=== PATIENT | female | born 1995 | race Two or more races ===

== ENCOUNTER 2025-06-15 11:38 | Outpatient (AMB) | payer MEDICAID, SELFPAY ==
[2025-06-15 11:57] VITALS: BP 133/87; PULSE 102; RESP 20; TEMP 36.6; O2SAT 95; BMI 36.8
--- NOTE | 2025-06-15 11:57 | OBCLNT_ITS ---
Vital Signs 06/15/25 11:57 Height 1.68 m Height Method Stated Weight 103.476 kg Weight Measurement Method Standing Scale BMI 36.8 BP 133/87 H Blood Pressure Source Automatic Cuff Blood Pressure Location Left Upper Arm Position Sitting Respiration 20 Pulse 102 H Pulse Source Monitor Temp 97.8 F Temp Source Oral Pulse Oximetry (%) 95 Oxygen Delivery Method Room Air Allergies/Home Meds Allergies & Medications Allergies aspirin Allergy (Verified 06/15/25 12:01) Medication Reconciliation No Known Home Medications 06/15/25 [History Confirmed 06/15/25] Intake Visit Data Collection New Patient or Established: New Patient (never been to [facility]) Reason for Visit:: INITIAL CARE Seen by Clinical Staff ONLY (RN/MA): No Probate Judge Required: No Do You Feel Safe at Home: Yes Authorities Contacted: N/A PCP or OBGYN visit in last 3 months: No Hx Now: Yes Are you currently on any form of Control: No Last menstrual period: 10/19/24 Pain Present Currently: No Pain Scale Used: Casarez-Ruelas/Numerical Pain scale:: 0 Smoking Status Smoking Status: Former smoker Questionnaires Covid-19 Vaccine Questionnaire Has patient been vacinated for Covid-19 Have you been vacinated for Covid-19: Yes PHQ-9 PHQ-2 Over the last 2 weeks, how often have you been bothered by any of the following problems? 1. Little interest or pleasure in doing things: not at all 2. Feeling down, depressed, or hopeless: not at all Total score: 0 PHQ-9 3. Trouble falling or staying asleep, or sleeping too much: Not at all 4. Feeling tired or having little energy: Not at all 5. Poor appetite or overeating: Not at all 6. Feeling bad about yourself - or that you are a failure or have let yourself or your family down: Not at all 7. Trouble concentrating on things, such as reading the newspaper or watching television: Not at all 8. Moving or speaking so slowly that other people could have noticed? - Or the opposite - being so fidgety or restless that you have been moving around a lot more than usual: not at all 9. Thoughts that you would be better off or of hurting yourself in some way: Not at all Total score: 0 Source: Developed by Drs. Estiven Reddy, Clemencia Khan, Zafar Ohara and colleagues, with an educational camille from [employer]. Depression screen completed yes Social History Living Situation History Lives With: Family Housing: House Tobacco History Smoking Status: Former smoker Smoking End Date: 11/12/24 tobacco type: cigarettes Number of Smoking Years (pipe): 10 Second Hand Smoke Exposure: No Alcohol History Alcohol Intake: Former Domestic Abuse History Do You Feel Safe at Home: Yes History of Present Illness HPI Narrative 29-year-old 3 para 2 for first OB visit. Patient was has been incarcerated at several facilities here in the [facility]. Patient reports she had a confirmation of at 13 weeks here in [place] and that she was taking vitamins since then. And then has been incarcerated until this date. Patient reports that she did have 2 or 3 OB visits. She does not have the results of her lab work but she does have some records of her visits. She had with her an ultrasound result from May 16 they put her at 29 weeks 6 days. This confirmed EDC of 07/24/2025. Patient's last. October 19, 2024. This also gave due date July 24, 2025 patient is here with her sisters for support. She reports that her menses are regular and every month. She has had 2 other children that were both vaginal births both of them term because baby 8 pounds 5 uncomplicated. She denies allergies. She has a history of anxiety and depression. She does not remember the medication she was on she does have an appointment with the behavioral health on June 17. She reports that she has a previous history of drug use. She was taking using cocaine and weed. The last time she reports that she used cocaine her weight has been 5 years. History of vaping and she stopped October 2024 she reports that she is currently still smoking marijuana. She is taking vitamins. And she has not had any surgeries. Reports good movement. Denies any signs or symptoms of labor. She reports that her A1c was 5.7 OB Initial Visit OB Flowsheet OB Flowsheet Initial Weight: Not Recorded Date -?-?-?-?-?-?-?-?-?-?-?-?- EGA Weight BP Alb Glu CTX Pres Fundal ht FHR Mov Dilation Station Effacement Hx Notes Visit Note 06/15/25 -?-?-?-?-?-?-?-?-?-?-?-?- 34w 1d 103.476 kg 133/87 absent cephalic 34 15 6 active 29-year-old 3 para 2 for OBI. Patient has been incarcerated and recently is out. She started her care at 13 weeks. Her EDC is July 24, 2025. That is based on her LMP of October 19, 2024 and a 29-week sono that was done in May. She reports that she has not used cocaine for the last 5 years. She is smoking marijuana s till. She has recently stopped smoking with the . She has an appointment with her behavioral health on Friday for history of anxiety and depression. She denies any leaking or bleeding at this time she has some increased pelvic pressure and back pain otherwise she is doing well Discussed kick count twice a day. Increase fluids. Continue with vitamins. And keep her appointment with behavioral health on the . I gave patient a lab slip to do OB panel and NIPT. Hemoglobin A1c will also be done and a urine culture will also be done. I made in a referral to Dr. Amezquita for MFM. And also discussed comfort measures for back pain and increase fluids. And return a week OB check and GBS Discussed kick count t wice a day. Increase fluids. Continue with vitamins. And keep her appointment with behavioral health on the . I gave patient a lab slip to do OB panel and NIPT. Hemoglobin A1c will also be done and a urine culture will also be done. I made in a referral to Dr. Amezquita for MFM. And also discussed comfort measures for back pain and increase fluids. And return a week OB check and GBS. Lipoma R flank, f/u post . patient was seen while incarcerated for lipoma and treated with lidocaine patch Menstrual History Menstrual reliability: definite Flow: normal Menstrual regularity: regular Monthly: Yes Age at menarche: 12 On control pills at conception: No Associated symptoms (LMP): Reports fatigue and breast tenderness OB History : 3 Para: 2 # of Living Children: 2 Delivery History 1st : Child's name: CHATO date: 10/02/13 sex: female Delivery type: vaginal Delivery complications: NONE History of depression before or after : No 2nd : Child's name: SHIRIN date: 07/19/15 sex: male Delivery type: vaginal Delivery complications: NONE History of depression before or after : No Infection History & Risk Evaluation History of STDs: none HIV risk evaluation: low risk Hepatitis B risk evaluation: low risk Patient or partner has history of Genital Herpes: No Genetic Screening & History Genetic Screening/Teratology Counseling - Includes patient, baby's father, or anyone in either family with: 1. Patient's age 35 years or older as of estimated date of delivery: No 2. Thalassemia (Ugandan, Nepali, Mediterranean, or Background); MCV less than 80: No 3. Neural Tube Defect (Meningomyelocele, Spina Bifida, or Anencephaly): No 4. Congenital Heart Defect: No 5. Down Syndrome: No 6. Neel-Sachs (Ashkenazi Congregational, Cajun, [place]): No 7. Ida Disease (Ashkenazi Congregational): No 8. Familial Dysautonomia (Ashkenazi Congregational): No 9. Sickle Cell Disease or Trait (): No 10. Hemophilia or other blood disorders: No 11. Muscular Dystrophy: No 12. Cystic Fibrosis: No 13. Onesimo's Chorea: No 14. Mental Retardation/Autism: Yes (BABY'S FATHER FAMILY MEMBER) 15. Other inherited genetic or chromosomal disorder: No 16. Maternal Metabolic Disorder (EG,TYPE 1 Diabetes, PKU): No 17. Patient or baby's father had a child with defects not listed above: No 18. Recurrent loss or a stillbirth: No 19. Medications (including supplements, vitamins, herbs or otc drugs)/illicit/recreational drugs/alcohol since last menstrual period: No 20. Any other: No Infection History 1. Live with someone with TB or exposed to TB: No 2. Rash or viral illness since last menstrual period: No 3. Hepatitis B,C: No Other (see comments) Source: [employer] Review of Systems Review of Systems Systems Reviewed: All systems reviewed, normal except as documented Constitutional Constitutional: Reports fatigue Endocrine Endocrine: Reports fatigue Exam Narrative Physical exam: normal heart rate. lungs clear. gravid abdomen. fh:34. vertex, fht: 156. 2+dtr, no edema,no clonus, Lipoma R flank General Limitations: no limitations General Appearance: alert, in no apparent distress, comfortable, cooperative, healthy appearing, well developed and well groomed Head Head exam: atraumatic, normocephalic and normal inspection Resp Respiratory exam: Present normal lung sounds bilaterally Card Cardiovascular exam: Present regular rate, normal rhythm and normal heart sounds Abdominal Abdominal exam: Present soft and normal bowel sounds Psych Psychiatric exam: Present normal affect and normal mood Office Procedures OB Clinic LOC & Office Proc's Nursing/Assessment Patient Status: Initial/New Patient OB Clinic Nursing Assessment: Medication Reconciliation, Update PMH in EMR and Vital Signs OB Clinic Coordination of Care: Complex Care and Chronic Disease 1-5, Consent,records obtained, informed consent, Education Simp Pt/Fam, Lab and Imaging orders, Results/Orders obtained and Staff clarify orders Special Needs: Heart tones New Patient Charge New Patient Point Assignment: [id number] New Patient Point Charge: LINOTYPE MACHINIST Level 4 ([id number]) Assessment & Plan Diagnosis / Problem List (1) Encounter for supervision of high risk in third trimester, antepartum: Status: Acute Plan Do OB panel, hemoglobin A1c, NIPT and carrier screens today. Schedule anatomy scan with Dr. Amezquita. Discussed labor precautions. Increase fluids. kick count reviewed twice daily. Return in a week for OB check and GBS Additional Plan Follow Up: 1 Week (obc)
== END 2025-06-15 12:27 | disposition home or self-care (01) ==
LOC: HODSOBC 11:38
PROVIDERS: Supervising Provider Advanced Practice Midwife; Visit Provider Advanced Practice Midwife
DX: O09.893 Supervision of other high risk pregnancies, third trimester (principal); O99.323 Drug use complicating pregnancy, third trimester; F12.90 Cannabis use, unspecified, uncomplicated; O99.343 Other mental disorders complicating pregnancy, third trimester; F41.9 Anxiety disorder, unspecified; F32.A Depression, unspecified; O99.713 Diseases of the skin and subcutaneous tissue complicating pregnancy, third trimester; D17.1 Benign lipomatous neoplasm of skin and subcutaneous tissue of trunk; Z3A.34 34 weeks gestation of pregnancy; Z87.891 Personal history of nicotine dependence
CPT/HCPCS: 99204; G0463

== ENCOUNTER 2025-06-20 15:25 | Outpatient (AMB) | payer MEDICAID, SELFPAY ==
[2025-06-20 16:10] VITALS: BP 144/90; PULSE 93; RESP 18; TEMP 36.5; O2SAT 95; BMI 37.4
--- NOTE | 2025-06-20 16:10 | OBCLNT_ITS ---
Vital Signs 06/20/25 16:10 Height 1.68 m Height Method Stated Weight 105.687 kg Weight Measurement Method Standing Scale BMI 37.4 BP 144/90 H Blood Pressure Source Automatic Cuff Blood Pressure Location Left Upper Arm Position Sitting Respiration 18 Pulse 93 Pulse Source Monitor Temp 97.7 F Temp Source Oral Pulse Oximetry (%) 95 Oxygen Delivery Method Room Air Allergies/Home Meds Allergies & Medications Allergies aspirin Allergy (Verified 06/20/25 19:05) Medication Reconciliation vitamin no.45-iron-FA 28 mg iron-1 mg chewable tablet 1 tab PO .QD 06/20/25 [History Confirmed 06/20/25] Intake Visit Data Collection New Patient or Established: Established Patient (seen at [facility] within 3 years) Reason for Visit:: CARE/ ER FOLLOW UP Seen by Clinical Staff ONLY (RN/MA): No Streets And Buildings Decorator Required: No Do You Feel Safe at Home: Yes Authorities Contacted: N/A PCP or OBGYN visit in last 3 months: Yes Hx Now: Yes Are you currently on any form of Control: No Pain Present Currently: No Pain Scale Used: Casarez-Ruelas/Numerical Pain scale:: 0 Smoking Status Smoking Status: Former smoker Questionnaires Covid-19 Vaccine Questionnaire Has patient been vacinated for Covid-19 Have you been vacinated for Covid-19: Yes PHQ-9 PHQ-2 Over the last 2 weeks, how often have you been bothered by any of the following problems? 1. Little interest or pleasure in doing things: not at all 2. Feeling down, depressed, or hopeless: not at all Total score: 0 PHQ-9 3. Trouble falling or staying asleep, or sleeping too much: Not at all 4. Feeling tired or having little energy: Not at all 5. Poor appetite or overeating: Not at all 6. Feeling bad about yourself - or that you are a failure or have let yourself or your family down: Not at all 7. Trouble concentrating on things, such as reading the newspaper or watching television: Not at all 8. Moving or speaking so slowly that other people could have noticed? - Or the opposite - being so fidgety or restless that you have been moving around a lot more than usual: not at all 9. Thoughts that you would be better off or of hurting yourself in some way: Not at all Total score: 0 Source: Developed by Drs. Estiven Reddy, Clemencia Khan, Zafar Ohara and colleagues, with an educational camille from [employer]. Depression screen completed yes Social History Living Situation History Lives With: Family Housing: House Tobacco History Smoking Status: Former smoker tobacco type: cigarettes Number of Smoking Years (pipe): 10 Second Hand Smoke Exposure: No Alcohol History Alcohol Intake: Former Domestic Abuse History Do You Feel Safe at Home: Yes Care OB Visit Log OB Flowsheet Initial Weight: Not Recorded Date -?-?-?-?-?-?-?-?-?-?-?-?- EGA Weight BP Alb Glu CTX Pres Fundal ht FHR Mov Dilation Station Effacement Hx Notes Visit Note 06/15/25 -?-?-?-?-?-?-?-?-?-?-?-?- 34w 1d 103.476 kg 133/87 absent cephalic 34 15 6 active 29-year-old 3 para 2 for OBI. Patient has been incarcerated and recently is out. She started her care at 13 weeks. Her EDC is July 24, 2025. That is based on her LMP of October 19, 2024 and a 29-week sono that was done in May. She reports that she has not used cocaine for the last 5 years. She is smoking marijuana still. She has recently stopped smoking with the . She has an appointment with her behavioral health on Friday for history of anxiety and depression. She denies any leaking or bleeding at this time she has some increased pelvic pressure and back pain otherwise she is doing well Discussed kick count twice a day. Increase fluids. Continue with vitamins. And keep her appointment with behavioral health on the . I gave patient a lab slip to do OB panel and NIPT. Hemoglobin A1c will also be done and a urine culture will also be done. I made in a referral to Dr. Amezquita for MFM. And also discussed comfort measures for back pain and increase fluids. And return a week OB check and GBS Discussed kick count t wice a day. Increase fluids. Continue with vitamins. And keep her appointment with behavioral health on the . I gave patient a lab slip to do OB panel and NIPT. Hemoglobin A1c will also be done and a urine culture will also be done. I made in a referral to Dr. Amezquita for MFM. And also discussed comfort measures for back pain and increase fluids. And return a week OB check and GBS. Lipoma R flank, f/u post . patient was seen while incarcerated for lipoma and treated with lidocaine patch 06/20/25 -?-?-?-?-?-?-?-?-?-?-?-?- 34w 6d 105.687 kg 144/90 absent cephalic 36 15 6 active Patient is here today for unscheduled OB appointment. Patient was concerned that she has not been feeling well. After patient's last visit June 15 patient went to [facility]. Patient was admitted for workup. OB ultrasound was done along with CMP, OB panel, and GBS swab. By ultrasound June 17 the baby measured 39 weeks 2 days. EFW was 3706. Baby was found to be in vertex presentation. Placenta was anterior. Patient's first ultrasound however was at 29 weeks on May 16, 2025. The patient was found to have a baby measuring 29 weeks 6 days with an EDC of July 24. Patient also reports that her last. October 19, 2024 was sure dates. In this also gave due date July 24, 2025. Patient is O+, antibody screen negative, hepatitis B was negative. HCV negative. Her RPR was negative. HIV was negative. She is rubella paulo mmune. GC and Chlamydia were negative. She had a hemoglobin of 13 and a hematocrit of 40. Platelets were normal. No UTI noted. And her hemoglobin A1c was 6.9. A CMP was done also and her CMP values were all normal range. Blood pressures at [facility] had ran anywhere from normotensive to 140s over 80s 140s over 90s. The patient was advised to check her blood pressure at home and she reports that those have been more in the 140-190 range and she was having a light headache. The patient also was advised on the GDM diet. And to check her blood sugars fasting and an hour after each meal. She denies leaking. Denies bleeding. Denies contractions at this time. Reports good movement because of light headache and elevated blood pressure patient will be sent to labor and delivery for PIH workup Patient sent to labor and delivery for PIH workup. Schedule with OB next visit. I had talked with patient about starting metformin because of a hemoglobin A1c of 6.9 and normal 1 hour results however patient wanted to wait till she saw OB for management. She is aware of GDM diet and is checking her sugars at home. MFM appointment is pending. Discussed labor precautions and kick count and I reviewed dates with patient. Return in a week with OB MILEY Calculator Estimated Delivery Date Method Current WG Current Estimate 07/26/25 Ultrasound #1 35w 0d Other Estimates 07/26/25 LMP (Certain) 35w 0d Notes Visit Date: 06/20/25 Last Updated by: Margie Senior CNM 06/15: NIPT/carrier screen-, GC/CT-, , O+,abs-, rpr;;nr, rub NI, HBSAG-,HIV-, HC-. SONO 06/17: 39.2, efw 3704, VTX,no previa,MAREK wnl 05/16/25: 1hr gtt:259/A1: 6.7 Visit Date: 06/15/25 Last Updated by: Margie Senior CNM 29 yo . LMP 10/19/24. EDC 07/24/25. sono: 05/16/25: 29w6. edc 07/24/25 Office Procedures OB Clinic LOC & Office Proc's Nursing/Assessment Patient Status: Established Patient OB Clinic Nursing Assessment: Medication Reconciliation, Update PMH in EMR and Vital Signs OB Clinic Coordination of Care: Complex Care and Chronic Disease 1-5, Consent,records obtained, informed consent, Education Simp Pt/Fam, Lab and Imaging orders, Results/Orders obtained and Staff clarify orders Special Needs: Heart tones Established Patient Charge Established Patient Point Assignment: 135 Established Patient Point Charge: EP Level 4 (120-155) Assessment & Plan Diagnosis / Problem List (1) Encounter for supervision of high risk in third trimester, antepartum: Status: Acute (2) Obesity complicating , third trimester: Status: Acute Qualifiers: Obesity type affecting : other obesity due to excess calories Qualified Code(s): O99.213 - Obesity complicating , third trimester; E66.09 - Other obesity due to excess calories (3) Late care affecting in third trimester: Status: Acute (4) Diet controlled gestational diabetes mellitus (GDM) in third trimester: Status: Acute Plan Continue vitamins. Reviewed GDM diet and glucose monitoring. MFM appointment pending. Schedule with OB for gestational diabetes and late care. Patient sent to labor and delivery for PIH labs and more blood pressure monitoring. Return in a week OB check. discuss dates Additional Plan Follow Up: 1 Week (obc)
== END 2025-06-20 17:06 | disposition home or self-care (01) ==
LOC: HODSOBC 15:25
PROVIDERS: Supervising Provider Advanced Practice Midwife; Visit Provider Advanced Practice Midwife
DX: O09.893 Supervision of other high risk pregnancies, third trimester (principal); O99.213 Obesity complicating pregnancy, third trimester; O24.410 Gestational diabetes mellitus in pregnancy, diet controlled; O09.33 Supervision of pregnancy with insufficient antenatal care, third trimester; O99.891 Other specified diseases and conditions complicating pregnancy; R03.0 Elevated blood-pressure reading, without diagnosis of hypertension; R51.9 Headache, unspecified; Z3A.34 34 weeks gestation of pregnancy; Z78.9 Other specified health status; Z87.891 Personal history of nicotine dependence; Z88.6 Allergy status to analgesic agent
CPT/HCPCS: 99214; G0463

== ENCOUNTER 2025-06-20 17:24 | Outpatient (CLI) | payer MEDICAID, SELFPAY ==
[2025-06-20] VITALS (19 sets, daily range): BP systolic 128–137; BP diastolic 63–69; PULSE 78–106; RESP 20–98; TEMP 36.8; O2SAT 97–99; BMI 37.4
--- NOTE | 2025-06-20 17:42 | XR_ITS ---
Examination: Complete OB ultrasound greater than 14 weeks Date and time of exam: June 20, 2025, 1822 hours INDICATIONS: Pelvic pain and pressure beginning one week ago Findings: Viable intrauterine single fetus with single amniotic sac presentation cephalic, spine and posterior Cardiac motion 131 BPM. Placenta anterior grade 3. Umbilical cord insertion is seen. Amniotic fluid index 22.8 cm. Cervix 4.0 cm Ovaries obscured by bowel gas.. Composite estimated gestational age based on BPD, head circumference, abdominal circumference, femur length is 36 weeks 0 days, estimated weight 2828 g. Survey of intracranial anatomy, spinal anatomy, abdominal anatomy, four-chamber heart performed with no abnormalities identified. Impression: Viable intrauterine gestation cephalic presentation..
--- NOTE | 2025-06-20 19:33 | PD.LDPN ---
Documentation for date of: 06/20/25 OB Labor Progress Note Pelvic Exam Amniotic membrane status: Intact Contractions Monitor mode: External Contraction frequency: 1-2 Contraction intensity: Mild Status status: Category l Assessment and Plan Comments: Triage Note Eliana is a 29yo with SIUP at 34&6wk by lmp c/w 29wk u/s presenting to L&D from clinic for bp 140's systolic. She notes no painful ctx, no vaginal bleeding, no lof. Normal movement. She denies headache, vision changes and RUQ pain. She notes question of her dating- she had an ultrasound in [place] recently that showed EFW 3700g with gestational age 39wk. ROS negative other than what was described above. Vitals wnl (All 6 bp's taken were normotensive), afebrile General: well developed, well nourished, no acute distress, conversant Cardiac: normal heart rate Lungs: breathing without distress Abdomen: soft, gravid, non-tender, no rebound or guarding NST: Reactive, +accels, no decels, mod melvin [place]: ctx q3-5min, palpate mild Ultrasound: Examination: Complete OB ultrasound greater than 14 weeks Date and time of exam: June 20, 2025, 1822 hours INDICATIONS: Pelvic pain and pressure beginning one week ago Findings: Viable intrauterine single fetus with single amniotic sac presentation cephalic, spine and posterior Cardiac motion 131 BPM. Placenta anterior grade 3. Umbilical cord insertion is seen. Amniotic fluid index 22.8 cm. Cervix 4.0 cm Ovaries obscured by bowel gas.. Composite estimated gestational age based on BPD, head circumference, abdominal circumference, femur length is 36 weeks 0 days, estimated weight 2828 g. Survey of intracranial anatomy, spinal anatomy, abdominal anatomy, four-chamber heart performed with no abnormalities identified. Impression: Viable intrauterine gestation cephalic presentation. Assessment: Eliana is a 29yo with SIUP at 34&6wk with no recurrence of elevated bp on serial bp monitoring. Complete OB ultrasound performed given considerable difference between her dates and recent ultrasound in [place]. Today EFW 2828g c/w 36w0d is much more consistent with her actual dates. She has had mild ctx in triage, but cervical length is 4cm. Vitals wnl, benign exam. Reassuring status. Plan: -Follow up OB visit within 1 week, close eye to bp's with next visits -Return precautions: persistent headache, vision changes and RUQ pain in addition to routine labor precautions Suzanne Martinez MD
== END 2025-06-20 19:35 | disposition home or self-care (01) ==
LOC: CNST 17:34 → S4SX 17:41
PROVIDERS: PCP Obstetrics & Gynecology; Referring Provider Obstetrics & Gynecology; Visit Provider Obstetrics & Gynecology
DX: Z36.9 Encounter for antenatal screening, unspecified (principal); Z34.83 Encounter for supervision of other normal pregnancy, third trimester; Z3A.34 34 weeks gestation of pregnancy
CPT/HCPCS: 59025; 76805

== ENCOUNTER 2025-06-24 13:05 | Outpatient (AMB) | payer MEDICAID, SELFPAY ==
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
[2025-06-24 13:17] VITALS: BP 121/78; PULSE 98; RESP 17; TEMP 36.6; O2SAT 95; BMI 37.4
== END 2025-06-24 14:02 | disposition home or self-care (01) ==
LOC: HODSOBC 13:05
PROVIDERS: PCP Obstetrics & Gynecology; Referring Provider Obstetrics & Gynecology; Supervising Provider Obstetrics & Gynecology; Visit Provider Obstetrics & Gynecology
DX: O09.33 Supervision of pregnancy with insufficient antenatal care, third trimester (principal); O09.893 Supervision of other high risk pregnancies, third trimester; O24.414 Gestational diabetes mellitus in pregnancy, insulin controlled; O26.843 Uterine size-date discrepancy, third trimester; O99.213 Obesity complicating pregnancy, third trimester; O40.3XX0 Polyhydramnios, third trimester, not applicable or unspecified; O10.913 Unspecified pre-existing hypertension complicating pregnancy, third trimester; Z3A.35 35 weeks gestation of pregnancy; Z87.891 Personal history of nicotine dependence; Z88.6 Allergy status to analgesic agent
CPT/HCPCS: 99213; G0463

== ENCOUNTER 2025-06-28 14:09 | Inpatient (IN) | payer MEDICAID, SELFPAY ==
[2025-06-28] VITALS (37 sets, daily range): BP systolic 95–146; BP diastolic 53–81; PULSE 93–144; RESP 16–99; TEMP 36.6–36.8; O2SAT 96–99; BMI 37.3
--- NOTE | 2025-06-28 14:34 | XR_ITS ---
Examination: Complete OB ultrasound greater than 14 weeks Date and time of exam: June 28, 2025 1455 hours INDICATIONS: Unknown presentation for labor, diagnosis gestational diabetes Findings: Viable intrauterine single fetus with single amniotic sac presentation cephalic spine maternal right Cardiac motion 158 BPM Placenta anterior grade 3 Umbilical cord insertion 3 vessel seen Amniotic fluid index 16.9 cm Ovaries obscured by bowel gas. Composite estimated gestational age based on BPD, head circumference, abdominal circumference, femur length is 40 weeks 1 day Estimated weight 4639 g. Survey of intracranial anatomy, spinal anatomy, abdominal anatomy, four-chamber heart performed with no abnormalities identified. Impression: Viable intrauterine gestation cephalic presentation.
[2025-06-28] MEDS: SODIUM CHLORIDE 0.9% 1000 ML 1,000 ML 125 ML IV (14:45)
[2025-06-28] MEDS: BETAMET ACET/BETAMET NA PH (Celestone) 6 MG/ML VIAL 12 MG IM (14:47)
[2025-06-28 14:59] LABS: Collection Type, Urine Clean Catch
[2025-06-28 15:09] LABS: Basophils # (Auto) 0.0 Thou/mm3 (0.0-0.2); Basophils % (Auto) 0 % (0-2.5); Eosinophils # (Auto) 0.0 Thou/mm3 (0.0-0.5); Eosinophils % (Auto) 0 % (0-10); Hematocrit 36.2 % (36.0-46.0); Hemoglobin 12.9 g/dL (12.0-16.0); Immature Granulocytes Auto 0.10 Thou/mm3 (0.00-0.00); Lymphocytes # (Auto) 0.7 Thou/mm3 (1.0-4.8); Lymphocytes % (Auto) 6 % (10-50); Mean Corpuscular HGB Conc 35.6 g/dl (31.0-37.0); Mean Corpuscular Hemoglobin 32.2 pg (25.0-35.0); Mean Corpuscular Volume 90 fL (80-100); Monocytes # (Auto) 0.9 Thou/mm3 (0.0-0.8); Monocytes % (Auto) 7 % (0-12); Neutrophils # (Auto) 10.2 Thou/mm3 (1.8-7.7); Neutrophils % (Auto) 86 % (37-80); Nucleated Red Blood Cell # 0.00 Thou/mm3 (0.00-0.00); Nucleated Red Blood Cell % 0 /100 WBC (0); Platelet Count 172 Thou/mm3 (140-440); RDW Standard Deviation 42.0 fL (36.4-46.3); Red Blood Count 4.01 Miln/mm3 (4.00-5.20); White Blood Count 11.9 Thou/mm3 (3.6-11.0)
[2025-06-28 15:17] LABS: Bacteria,Urine Rare; Bilirubin,Urine Negative (Negative); Blood,Urine Negative (Negative); Calcium Oxalate Crystals,Urine 2+; Color,Urine Yellow (Lt Yel-Yel); Glucose, Urine Trace (Negative); Ketones,Urine 4+ (Negative); Leukocyte Esterase,Urine Negative (Negative); Nitrite,Urine Negative (Negative); PH,Urine 6.5 (5.0-7.0); Protein,Urine 1+ (Neg - Trace); RBC,Urine 3 /hpf (0-3); Specific Gravity,Urine 1.027 (1.001-1.035); Squamous Epithelial Cell,Urine 3 /hpf (0-5); Urobilinogen,Urine Negative mg/dL (0.0-1.0); WBC,Urine 2 /hpf (0-5)
[2025-06-28 15:18] LABS: Fibrinogen 567 mg/dL (175-375); INR 0.9 (0.9-1.3); Partial Thromboplastin Time 26.0 Seconds (22.0-36.0); Prothrombin Time 10.4 Seconds (9.0-12.2)
[2025-06-28 15:21] LABS: Alanine Aminotransferase 48 U/L (10-49); Albumin, Serum 3.8 gm/dL (3.5-5.0); Albumin/Globulin Ratio 1.5 (1.2-2.2); Alkaline Phosphatase 126 U/L (46-116); Anion Gap 14 (7-16); Aspartate Amino Transferase 161 U/L (0-34); BUN/Creatinine Ratio 9 Ratio (12-20); Bilirubin,Total 0.8 mg/dL (0.3-1.2); Blood Urea Nitrogen 6 mg/dL (9-23); Calcium 9.0 mg/dL (8.3-10.6); Calcium (Corrected) 9.2 mg/dL (8.5-10.1); Carbon Dioxide 17.4 mMol/L (20.0-31.0); Chloride 108 mMol/L (98-107); Creatinine (Component) 0.7 mg/dL (0.6-1.3); Estimated Creatinine Clearance 143.8 mL/min (>60); Globulin 2.5 gm/dL (2.3-3.5); Glucose 162 mg/dL (74-106); Osmolality,Calculated 279 (275-295); Potassium 3.9 mMol/L (3.4-5.1); Sodium 139 mMol/L (136-145); Total Protein 6.3 gm/dL (5.7-8.2); Uric Acid 4.5 mg/dL (3.1-7.8); eGFR > 60 See Note
[2025-06-28 15:23] LABS: Creatinine,Random Urine 222 mg/dL (30-125); Protein Total, Random Urine 74 mg/dL (1-14)
[2025-06-28 15:29] LABS: Clarity,Urine Hazy (Clear/Hazy)
[2025-06-28] MEDS: PROMETHAZINE INJ 25 MG in SODIUM CHLORIDE 0.9% 50 ML IV (17:52)
[2025-06-28] MEDS: MORPHINE SULF INJ 10 MG/ML VIAL 4 MG IVP (17:55)
[2025-06-28 20:15] LABS: Amphetamine/Metham Scrn,Ur OB Negative (Negative); Benzoylecgonine Screen, Ur OB Negative (Negative); Opiate Screen,Urine OB Positive (Negative); Opiates U Confirm* See Sep Rpt; THC Screen,Urine OB Negative (Negative)
--- NOTE | 2025-06-28 20:16 | XR_ITS ---
Examination: Biophysical profile, ultrasound Date and time of exam: June 28, 2025, 0822 hours INDICATIONS: Decreasing hemoglobin today, diagnosis gestational diabetes Technique: Multiple transabdominal sonographic images of the pelvis abdomen obtained. Attention is directed to the breathing movement, gross body movement, amniotic fluid volume and tone. Findings: 20 cm Total biophysical profile is 6 of 8. breathing movement is 0. Gross body movement is 2. tone is 2. Qualitative amniotic fluid volume is 2 Impression: Biophysical profile is 6 of 8.
[2025-06-28] MEDS: INSULIN LISPRO (AdmeLOG) 1 UNIT/0.01 ML UNIT SC (21:22)
[2025-06-28] MEDS: INSULIN GLARGINE (Lantus) 5 UNIT/0.05 ML (PER 5 UNITS) 50 UNIT SC (21:24)
--- NOTE | 2025-06-28 22:01 | ESHP_ITS ---
Documentation for date of: 06/28/25 OB Labor/Induct. HPI History of Present Illness Chief complaint: Early labor : 3 Para: 2 Term pregnancies: 2 pregnancies: 0 Living children: 2 History of Abortions: Spontaneous and Elective: 0 History of Vaginal deliveries: 2 History of sections: No History of : No MILEY: 07/26/25 History of present illness: Louise is a 29-year-old 3 para 2 at 36 weeks and 0 days who initially presented to labor and delivery triage with contractions and significant discomfort. Patient was placed under observation, her initial cervical exam was 3 cm dilated she had contractions every 2 to 3 minutes on arrival. She has made no cervical change, however the heart rate tracing has intermittently shown minimal variability with occasional decelerations. Biophysical profile was obtained and was scored at 6 out of 8 with points lost for breathing movements. Patient denies any leakage of fluid or vaginal bleeding. She was given betamethasone on arrival to the hospital. Patient was late entry to care, She has presented to labor and delivery triage with mild range blood pressure elevations as well as she is currentl insulin for her gestational diabetes which is very poorly controlled. She has blood glucose elevations over 200 after meals. Her last hemoglobin A1c was 6.4%. History of Present Adequate Care: No Labs Labs: Positive: Group Beta Strep, Negative: RPR, Hepatitis B, Rubella Titre, HIV, Chlamydia and Gonorrhea and Unknown: Herpes Type 1, Herpes Type 2 and Covid-19 Past Medical History Surgical History SURGICAL: Negative Section Meds Home Medications and Allergies Home Medications ?Medication ?Instructions ?Recorded ?Confirmed ?Type vitamin no.45-iron-FA 28 1 tab PO .QD 2 5 06/28/25 History mg iron-1 mg chewable tablet Allergies Allergy/AdvReac Type Severity Reaction Status Date / Time aspirin Allergy Verified 06/24/25 13:17 OB Exam Physical Exam Vital signs: Temp Pulse Resp BP Pulse Ox 98 F 99 16 138/59 H 98 06/28/25 19:26 06/28/25 21:33 06/28/25 19:26 06/28/25 21:33 06/28/25 16:14 Constitutional Constitutional: no acute distress Routine HEENT Exam Head: Present normocephalic and atraumatic Eye: Present EOMI and PERRL ENT: Present mucous membranes moist Routine Neck Exam Neck: Present supple and trachea midline Routine Cardiovascular Exam Cardiovascular: Present RRR Routine Abdominal Exam Abdominal: Present soft and normoactive bowel sounds Detailed Labor and Delivery Exam Dilation (cm): 3 Effacement (%): 50 Cervix position: posterior station: -4 Consistency: firm Presentation: Vertex Routine Extremities Exam Extremities: Present full ROM Routine Skin Exam Skin: Present intact, dry and warm Routine Neurological Exam Neurological: Present alert, oriented X3 and CN II-XII intact Routine Psychiatric Exam Psychiatric: Present normal affect and normal thought process OB Results Labs 06/28/25 14:40 06/28/25 14:40 Labs: Short CBC 06/28/25 Range/Units 14:40 WBC 11.9 H (3.6-11.0) Thou/mm3 Hgb 12.9 (12.0-16.0) g/dL Hct 36.2 (36.0-46.0) % Plt Count 172 (140-440) Thou/mm3 BMP 06/28/25 14:40 Sodium 139 Potassium 3.9 Chloride 108 H Carbon Dioxide 17.4 L BUN 6 L Creatinine 0.7 Glucose 162 H Calcium 9.0 Liver Function 06/28/25 Range/Units 14:40 Total Bilirubin 0.8 (0.3-1.2) mg/dL AST 161 H (0-34) U/L ALT 48 (10-49) U/L Alkaline Phosphatase 126 H (46-116) U/L Albumin 3.8 (3.5-5.0) gm/dL Urine 06/28/25 Range/Units 14:40 Urine Color Yellow (Lt Yel-Yel) Urine Clarity Hazy (Clear/Hazy) Urine pH 6.5 (5.0-7.0) Ur Specific [place] 1.027 (1.001-1.035) Urine Protein 1+ A (Neg - Trace) Urine Glucose (UA) Trace (Negative) OB Assessment & Plan Assessment and Plan (1) Uterine size date discrepancy: Status: Acute (2) Gestational diabetes requiring insulin: Status: Acute Assessment and plan: Admit patient to inpatient status Due to points being lost on biophysical profile and patient being remote from delivery with multiple comorbid factors including poorly controlled insulin- dependent diabetes and gestational hypertension we will proceed to delivery via section. IV access, normal saline at 1.5 cc/h, n.p.o. from now onwards. Ancef 2 g prior to surgery start. SCDs for DVT prophylaxis. Scheduled for the OR at 11 PM. (3) Late care affecting in third trimester: Status: Acute (4) Obesity complicating , third trimester: Status: Acute (5) Encounter for supervision of high risk in third trimester, antepartum: Status: Acute (4) Obesity complicating , third trimester Qualifiers: Obesity type affecting : other obesity due to excess calories Q ualified Code(s): O99.213 - Obesity complicating , third trimester; E66.09 - Other obesity due to excess calories
[2025-06-28 22:51] LABS: Basophils # (Auto) 0.0 Thou/mm3 (0.0-0.2); Basophils % (Auto) 0 % (0-2.5); Eosinophils # (Auto) 0.0 Thou/mm3 (0.0-0.5); Eosinophils % (Auto) 0 % (0-10); Hematocrit 35.2 % (36.0-46.0); Hemoglobin 12.3 g/dL (12.0-16.0); Immature Granulocytes Auto 0.08 Thou/mm3 (0.00-0.00); Lymphocytes # (Auto) 0.9 Thou/mm3 (1.0-4.8); Lymphocytes % (Auto) 8 % (10-50); Mean Corpuscular HGB Conc 34.9 g/dl (31.0-37.0); Mean Corpuscular Hemoglobin 32.3 pg (25.0-35.0); Mean Corpuscular Volume 92 fL (80-100); Monocytes # (Auto) 0.2 Thou/mm3 (0.0-0.8); Monocytes % (Auto) 2 % (0-12); Neutrophils # (Auto) 9.6 Thou/mm3 (1.8-7.7); Neutrophils % (Auto) 89 % (37-80); Nucleated Red Blood Cell # 0.00 Thou/mm3 (0.00-0.00); Nucleated Red Blood Cell % 0 /100 WBC (0); Platelet Count 161 Thou/mm3 (140-440); RDW Standard Deviation 43.0 fL (36.4-46.3); Red Blood Count 3.81 Miln/mm3 (4.00-5.20); White Blood Count 10.8 Thou/mm3 (3.6-11.0)
[2025-06-28] MEDS: CITRIC ACID/SODIUM CITR 15 ML UDC (BICITRA) 30 ML PO (22:59)
[2025-06-28] MEDS: ceFAZolin/D5W 2 GM IV 2 GM/100 ML BAG IV (22:59)
[2025-06-28] MEDS: FAMOTIDINE INJ 10 MG/ML VIAL 2 ML 20 MG IV (22:59)
[2025-06-28 23:02] LABS: INR 1.0 (0.9-1.3); Partial Thromboplastin Time 26.5 Seconds (22.0-36.0); Prothrombin Time 10.5 Seconds (9.0-12.2)
[2025-06-28 23:05] LABS: Alanine Aminotransferase 43 U/L (10-49); Albumin, Serum 3.6 gm/dL (3.5-5.0); Albumin/Globulin Ratio 1.5 (1.2-2.2); Alkaline Phosphatase 118 U/L (46-116); Anion Gap 13 (7-16); Aspartate Amino Transferase 115 U/L (0-34); BUN/Creatinine Ratio 9 Ratio (12-20); Bilirubin,Total 0.7 mg/dL (0.3-1.2); Blood Urea Nitrogen 6 mg/dL (9-23); Calcium 8.6 mg/dL (8.3-10.6); Calcium (Corrected) 8.9 mg/dL (8.5-10.1); Carbon Dioxide 16.5 mMol/L (20.0-31.0); Chloride 108 mMol/L (98-107); Creatinine (Component) 0.7 mg/dL (0.6-1.3); Estimated Creatinine Clearance 143.8 mL/min (>60); Globulin 2.4 gm/dL (2.3-3.5); Glucose 237 mg/dL (74-106); Osmolality,Calculated 279 (275-295); Potassium 4.2 mMol/L (3.4-5.1); Sodium 137 mMol/L (136-145); Total Protein 6.0 gm/dL (5.7-8.2); eGFR > 60 See Note
[2025-06-28 23:29] LABS: Syphilis Nonreactive (Nonreactive)
[2025-06-29] VITALS (17 sets, daily range): BP systolic 100–122; BP diastolic 56–78; PULSE 71–98; RESP 15–20; TEMP 36.5–36.9; O2SAT 96–98
--- NOTE | 2025-06-29 00:02 | PD.GYNPROC ---
Operative Note - PRINTING ENGINEER Procedure Date of procedure: 06/29/25 Procedure Performed: Primary low-transverse section Indication: 29-year-old 3 para 2 at 36 weeks and 0 days with category 2 heart rate tracing 6 out of 8 biophysical profile score with points lost for breathing Poorly controlled insulin-dependent gestational diabetes with poor compliance New onset gestational hypertension Suspected macrosomia with estimated weight over 9 pounds at 36 weeks Post-Op diagnosis: Placental abruption with Couvelaire uterus Anesthesia type: Spinal Procedure description: Informed consent was obtained and the patient was taken to the operating room. Identity was confirmed by double identifiers and she was placed on the operating table. Spinal anesthesia was administered and she was positioned in the supine position. The abdomen and perineum were prepped in the usual sterile fashion and a Vital catheter was placed to continuous drainage. Sterile drapes were applied. The incision site was tested for adequacy of anesthesia. A Pfannenstiel skin incision was made with a scalpel and carried to the subcutaneous fat up to the rectus fascia. The rectus fascia was incised on either side of the midline and the incisions were extended bilaterally. The fascia was gently dissected off the ventral surface of the rectus muscle both superiorly and inferiorly. The rectus bellies were gently in the midline and the peritoneum was identified and entered bluntly using the surgeon's finger. The peritoneal opening was now stretched to create an adequate opening for access to the uterus. Edvin O-ring retractor was placed for adequate visualization. The anterior surface of the uterus was inspected and a large area of bruising was noted in the midline. The uterine surface was now also palpated. The bladder reflection was identified and a Suraj Singh low transverse uterine incision was made in the lower uterine segment taking care to avoid the bladder. Uterine entry was accomplished bluntly and the opening was stretched to create adequate room. The amniotic membranes were now ruptured and clear amniotic fluid was released. The fetus was noted to be in the vertex position. The head was gently elevated out of the maternal pelvis and single loop of nuchal cord was found around the neck. The cord was released and the rest of the shoulders and body were delivered by gentle fundal pressure. Umbilical cord was doubly clamped, divided and the infant was handed over to the waiting team. Cord gas samples were obtained. The placenta was delivered by gentle traction on the umbilical cord. The interior of the uterus was now thoroughly cleaned of all blood and debris and membranes. The hysterotomy angles were grasped by a pair of Allis clamps and the hysterotomy was closed using 1 Monocryl suture in 2 layers. The first layer was used to approximate the muscle in a running locked fashion, the second layer was used to approximate the thickness of the myometrium and uterine serosa in an imbricated manner. Once the repair was completed the hysterotomy was inspected and noted to be adequately hemostatic. The hysterotomy was once again inspected and hemostasis was noted to be satisfactory. The Edvin retractor was now removed. The peritoneal edges were re approximated. The rectus muscles were re approximated. The rectus fascia was now repaired using 0 Vicryl suture in a running fashion. The subcutaneous layer was now copiously irrigated using warm normal saline. All bleeding points were cauterized using the Bovie. The subcutaneous fat was closed using 3-0 Vicryl. The skin was closed using 4-0 Monocryl in a subcuticular fashion. The skin was cleaned and a sterile dressing was applied. The patient was now undraped, the abdomen and back were thoroughly cleaned and she was transferred to the recovery room in a stable and awake condition. The patient tolerated the entire procedure well. No complications were encountered. All instrument, sponge and lap counts were correct x2. Estimated blood loss (ml): 800 Findings: 1. Procedure significantly more challenging due to patient's body habitus 2. Placental abruption with Couvelaire uterus Diagnosis Discharge Diagnosis (1) Uterine size date discrepancy: Status: Acute (2) Gestational diabetes requiring insulin: Status: Acute (3) Late care affecting in third trimester: Status: Acute (4) Obesity complicating , third trimester: Status: Acute (5) Encounter for supervision of high risk in third trimester, antepartum: Status: Acute (6) Placental abruption: Status: Acute (7) Couvelaire uterus: Status: Acute Problem List Completed Was Problem List Reviewed/Reconciled?: Yes (4) Obesity complicating , third trimester Qualifiers: Obesity type affecting : other obesity due to excess calories Qualified Code(s): O99.213 - Obesity complicating , third trimester; E66.09 - Other obesity due to excess calories
[2025-06-29] MEDS: SODIUM CHLORIDE 0.9% 1000 ML 1,000 ML 125 ML IV (02:11)
[2025-06-29 05:43] LABS: Basophils # (Auto) 0.0 Thou/mm3 (0.0-0.2); Basophils % (Auto) 0 % (0-2.5); Eosinophils # (Auto) 0.0 Thou/mm3 (0.0-0.5); Eosinophils % (Auto) 0 % (0-10); Hematocrit 31.3 % (36.0-46.0); Hemoglobin 11.1 g/dL (12.0-16.0); Immature Granulocytes Auto 0.09 Thou/mm3 (0.00-0.00); Lymphocytes # (Auto) 1.5 Thou/mm3 (1.0-4.8); Lymphocytes % (Auto) 10 % (10-50); Mean Corpuscular HGB Conc 35.5 g/dl (31.0-37.0); Mean Corpuscular Hemoglobin 32.4 pg (25.0-35.0); Mean Corpuscular Volume 91 fL (80-100); Monocytes # (Auto) 1.1 Thou/mm3 (0.0-0.8); Monocytes % (Auto) 7 % (0-12); Neutrophils # (Auto) 12.7 Thou/mm3 (1.8-7.7); Neutrophils % (Auto) 83 % (37-80); Nucleated Red Blood Cell # 0.00 Thou/mm3 (0.00-0.00); Nucleated Red Blood Cell % 0 /100 WBC (0); Platelet Count 166 Thou/mm3 (140-440); RDW Standard Deviation 42.6 fL (36.4-46.3); Red Blood Count 3.43 Miln/mm3 (4.00-5.20); White Blood Count 15.3 Thou/mm3 (3.6-11.0)
[2025-06-29] MEDS: NIFEdipine XL 30 MG TABCR PO (06:01)
[2025-06-29] MEDS: INSULIN LISPRO (AdmeLOG) 1 UNIT/0.01 ML UNIT SC ×2 (07:32→11:21)
[2025-06-29] MEDS: ACETAMINOPHEN 325 MG TABLET 650 MG PO ×2 (08:01→16:54)
[2025-06-29] MEDS: DOCUSATE SOD 100 MG CAPSULE PO (08:02)
[2025-06-29] MEDS: KETOROLAC INJ 30 MG/ML VIAL IVP ×2 (11:10→20:43)
[2025-06-29] MEDS: INSULIN LISPRO (AdmeLOG) 1 UNIT/0.01 ML UNIT 15 UNIT SC (16:52)
--- NOTE | 2025-06-29 18:55 | ESPR_ITS ---
Subjective Subjective Interval history: The patient is a 29-year-old G3 now P3003 status post primary for category 2 tracing remote from delivery. She is technically postop day [address] Fuller did the case after midnight 06/29/2025. This morning she is resting comfortably in bed. She has a history of being incarcerated. She denies any drug use but she is very worried about taking opiates orally. 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 I did call the pharmacy and he stated it was okay to be on Toradol. Will go ahead and try Toradol and Tylenol and if the patient needs anything else we will go ahead and add a narcotic. Patient states she did have to talk to her chief sustainability officer about this. I did explain that she did had major surgery. She has never had a before. I need her up walking around. She is not insulin requiring diabetic this and her blood sugars have been high. Exam Vital Signs Temp Pulse Resp BP Pulse Ox O2 Del Method 97.9 F 94 20 112/62 97 Room Air 06/29/25 16:35 06/29/25 16:35 06/29/25 16:35 06/29/25 16:35 06/29/25 16:35 06/29/25 16:35 Narrative Exam Patient is resting comfortably in bed. Her mother is at bedside. The baby was 36 weeks and over 9 pounds. The baby is also at bedside. Objective Labs 06/29/25 05:05 06/28/25 22:35 Labs: Laboratory Results - last 24 hr 06/28/25 06/28/25 06/29/25 19:33 22:35 05:05 WBC 10.8 15.3 H D RBC 3.81 L 3.43 L Hgb 12.3 11.1 L Hct 35.2 L 31.3 L MCV 92 91 MCH 32.3 32.4 MCHC 34.9 35.5 RDW Std Deviation 43.0 42.6 Plt Count 161 166 Neut % (Auto) 89 H 83 H Lymph % (Auto) 8 L 10 [place] % (Auto) 2 7 Eos % (Auto) 0 0 Baso % (Auto) 0 0 Neut # (Auto) 9.6 H 12.7 H Lymph # (Auto) 0.9 L 1.5 [place] # (Auto) 0.2 1.1 H Eos # (Auto) 0.0 0.0 Baso # (Auto) 0.0 0.0 Immature Gran # (Auto) 0.08 H 0.09 H Absolute Nucleated RBC 0.00 0.00 Immature Gran % 1 H 1 H Nucleated RBC % 0 0 PT 10.5 INR 1.0 APTT 26.5 Sodium 137 Potassium 4.2 Chloride 108 H Carbon Dioxide 16.5 L Anion Gap 13 BUN 6 L Creatinine 0.7 Estim Creat Clear Calc 143.8 eGFR > 60 BUN/Creatinine Ratio 9 L Glucose 237 H D Calculated Osmolality 279 Calcium 8.6 Corrected Calcium 8.9 Total Bilirubin 0.7 AST 115 H ALT 43 Alkaline Phosphatase 118 H Total Protein 6.0 Albumin 3.6 Globulin 2.4 Albumin/Globulin Ratio 1.5 Urine Opiates Screen Positive A U Amphetamin/Meth Scrn Negative U Cocaine Metab Screen Negative U Marijuana (THC) Screen Negative Syphilis Serology Nonreactive Blood Type Cancelled Antibody Screen Cancelled Blood Bank Wristband ID Cancelled Assessment & Plan Problem List (1) Uterine size date discrepancy: Status: Acute (2) Gestational diabetes requiring insulin: Status: Acute (3) Late care affecting in third trimester: Status: Acute (4) Obesity complicating , third trimester: Status: Acute (5) Encounter for supervision of high risk in third trimester, antepartum: Status: Acute (6) Placental abruption: Status: Acute (7) Couvelaire uterus: Status: Acute Assessment Comment Assessment comment: Postop day 0. Routine care. Add hemoglobin A1c to morning labs. Work on insulin and glucose control. Work on pain control. Time Spent With Patient Time: Total time spent is greater than 50% in coordination of care (as documented) at patient's floor/unit and/or counseling patient:
[2025-06-29] MEDS: ENOXAPARIN SOD INJ 40 MG/0.4 ML SYRINGE SC (20:33)
[2025-06-29] MEDS: INSULIN GLARGINE (Lantus) 5 UNIT/0.05 ML (PER 5 UNITS) 25 UNIT SC (20:34)
[2025-06-30] MEDS: KETOROLAC INJ 30 MG/ML VIAL IVP ×2 (03:41→11:44)
[2025-06-30 03:50] VITALS: BP 113/66; PULSE 77; RESP 16; TEMP 36.5; O2SAT 97
[2025-06-30 06:15] LABS: Basophils # (Auto) 0.0 Thou/mm3 (0.0-0.2); Basophils % (Auto) 0 % (0-2.5); Eosinophils # (Auto) 0.0 Thou/mm3 (0.0-0.5); Eosinophils % (Auto) 0 % (0-10); Hematocrit 27.0 % (36.0-46.0); Hemoglobin 9.4 g/dL (12.0-16.0); Immature Granulocytes Auto 0.12 Thou/mm3 (0.00-0.00); Lymphocytes # (Auto) 2.8 Thou/mm3 (1.0-4.8); Lymphocytes % (Auto) 17 % (10-50); Mean Corpuscular HGB Conc 34.8 g/dl (31.0-37.0); Mean Corpuscular Hemoglobin 32.3 pg (25.0-35.0); Mean Corpuscular Volume 93 fL (80-100); Monocytes # (Auto) 1.0 Thou/mm3 (0.0-0.8); Monocytes % (Auto) 6 % (0-12); Neutrophils # (Auto) 12.2 Thou/mm3 (1.8-7.7); Neutrophils % (Auto) 76 % (37-80); Nucleated Red Blood Cell # 0.00 Thou/mm3 (0.00-0.00); Nucleated Red Blood Cell % 0 /100 WBC (0); Platelet Count 166 Thou/mm3 (140-440); RDW Standard Deviation 43.8 fL (36.4-46.3); Red Blood Count 2.91 Miln/mm3 (4.00-5.20); White Blood Count 16.1 Thou/mm3 (3.6-11.0)
[2025-06-30 06:38] LABS: Glucose Estimated Average 148 mg/dL (80-131); Hemoglobin A1C 6.8 % Hgb (4.8-6.0)
[2025-06-30 07:55] VITALS: BP 122/86; PULSE 86; RESP 17; TEMP 36.6; O2SAT 97
[2025-06-30] MEDS: INSULIN LISPRO (AdmeLOG) 1 UNIT/0.01 ML UNIT 15 UNIT SC ×2 (08:12→16:43)
[2025-06-30 08:13] VITALS: BP 122/86; PULSE 86
[2025-06-30] MEDS: NIFEdipine XL 30 MG TABCR PO (08:13)
[2025-06-30] MEDS: ACETAMINOPHEN 325 MG TABLET 650 MG PO (08:13)
[2025-06-30] MEDS: DOCUSATE SOD 100 MG CAPSULE PO (08:13)
--- NOTE | 2025-06-30 08:16 | ESPR_ITS ---
Subjective Subjective Interval history: Patient denies any problem or complaint. She is voiding and ambulating and tolerating regular diet and passing flatus. She denies any excessive vaginal bleeding. She denies any dizziness or lightheadedness. She denies any chest pain palpitation shortness of breath or lower extremity pain. Exam Vital Signs Temp Pulse Resp BP Pulse Ox O2 Del Method 97.7 F 86 16 122/86 H 97 Room Air 06/30/25 03:50 06/30/25 08:13 06/30/25 03:50 06/30/25 08:13 06/30/25 03:50 06/30/25 03:50 Routine Respiratory Exam Comments: Clear to auscultation bilaterally Routine Cardiovascular Exam Comments: Regular rate and rhythm Routine Abdominal Exam Comments: Fundus is firm, dressing dry and intact. Nondistended. Routine Extremities Exam Comments: Nontender Objective Labs 06/30/25 05:25 06/28/25 22:35 Labs: Laboratory Results - last 24 hr 06/30/25 05:25 WBC 16.1 H RBC 2.91 L Hgb 9.4 L Hct 27.0 L MCV 93 MCH 32.3 MCHC 34.8 RDW Std Deviation 43.8 Plt Count 166 Neut % (Auto) 76 Lymph % (Auto) 17 [place] % (Auto) 6 Eos % (Auto) 0 Baso % (Auto) 0 Neut # (Auto) 12.2 H Lymph # (Auto) 2.8 [place] # (Auto) 1.0 H Eos # (Auto) 0.0 Baso # (Auto) 0.0 Immature Gran # (Auto) 0.12 H Absolute Nucleated RBC 0.00 Immature Gran % 1 H Nucleated RBC % [address] Glu mg/dL 148 H Hemoglobin A1c 6.8 H Impressions Impression: Postop day #1 status post delivery Remove dressing DC IV Encourage ambulation support Baby under bili lights Possible discharge home tomorrow Assessment & Plan Problem List (1) Uterine size date discrepancy: Status: Acute (2) Gestational diabetes requiring insulin: Status: Acute (3) Late care affecting in third trimester: Status: Acute (4) Obesity complicating , third trimester: Status: Acute (5) Encounter for supervision of high risk in third trimester, antepartum: Status: Acute (6) Placental abruption: Status: Acute (7) Couvelaire uterus: Status: Acute Time Spent With Patient Time: Total time spent is greater than 50% in coordination of care (as documented) at patient's floor/unit and/or counseling patient:
[2025-06-30 12:00] VITALS: BP 110/72; PULSE 82; RESP 16; TEMP 36.7; O2SAT 97
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
[2025-06-30 20:17] VITALS: BP 118/73; PULSE 87; RESP 19; TEMP 37.1; O2SAT 97
[2025-06-30] MEDS: HYDROcodone/APAP 5/325 TABLET 2 TAB PO (20:55)
[2025-06-30] MEDS: ENOXAPARIN SOD INJ 40 MG/0.4 ML SYRINGE SC (20:55)
[2025-06-30] MEDS: INSULIN GLARGINE (Lantus) 5 UNIT/0.05 ML (PER 5 UNITS) 25 UNIT SC (20:58)
--- NOTE | 2025-06-30 21:40 | PC.NURSE ---
2042 Pt requested breast pump. Breast pump and supplies brought to room. Education on use of breast pump and storage given and RN assisted on use.
[2025-07-01 04:27] VITALS: BP 112/72; PULSE 85; RESP 18; TEMP 37.3; O2SAT 97
[2025-07-01] MEDS: HYDROcodone/APAP 5/325 TABLET 2 TAB PO ×2 (04:34→11:35)
[2025-07-01 07:30] VITALS: BP 110/68; PULSE 88; RESP 18; TEMP 37.1; O2SAT 97
--- NOTE | 2025-07-01 07:43 | PD.LDPPPRG ---
Subjective Subjective Interval history: Delivery type: Patient doing well this morning. No acute complaints. Ambulating, tolerating p.o. and voiding without difficulty. HTN/Pre-Eclampsia screen: No chest pain, shortness of breath, headache, visual changes, epigastric or right upper quadrant pain. Breast-feeding, lochia diminishing. Bowel: Flatus+/ BM+ Exam Vital Signs Temp Pulse Resp BP Pulse Ox O2 Del Method 98.7 F 88 18 110/68 97 Room Air 07/01/25 07:30 07/01/25 07:30 07/01/25 07:30 07/01/25 07:30 07/01/25 07:30 07/01/25 07:30 Constitutional Constitutional: no acute distress Routine HEENT Exam Head: Present normocephalic and atraumatic Eye: Present EOMI and PERRL ENT: Present mucous membranes moist Routine Neck Exam Neck: Present supple and trachea midline Routine Respiratory Exam Respiratory: Present chest non-tender, lungs clear, normal breath sounds and no resp distress Routine Cardiovascular Exam Cardiovascular: Present RRR Routine Abdominal Exam Abdominal: Present soft and normoactive bowel sounds Routine Extremities Exam Extremities: Present full ROM Routine Skin Exam Skin: Present intact, dry and warm Routine Neurological Exam Neurological: Present alert, oriented X3 and CN II-XII intact Routine Psychiatric Exam Psychiatric: Present normal affect and normal thought process Objective Labs 06/30/25 05:25 06/28/25 22:35 Assessment & Plan Problem List (1) Uterine size date discrepancy: Status: Acute (2) Gestational diabetes requiring insulin: Status: Acute (3) Late care affecting in third trimester: Status: Acute (4) Obesity complicating , third trimester: Status: Acute (5) Encounter for supervision of high risk in third trimester, antepartum: Status: Acute (6) Placental abruption: Status: Acute (7) Couvelaire uterus: Status: Acute (8) delivery delivered: Status: Acute Assessment and plan: PPD/POD#2 1. Continue routine care 2. Transition to PO meds. 3. Encourage to ambulate/ breast-feed 4. Anticipate discharge today, patient may be allowed to go be a boarder mom if infant does not care for Time Spent With Patient Time: Total time spent is greater than 50% in coordination of care (as documented) at patient's floor/unit and/or counseling patient:
[2025-07-01] MEDS: ACETAMINOPHEN 325 MG TABLET 650 MG PO (07:46)
[2025-07-01] MEDS: INSULIN LISPRO (AdmeLOG) 1 UNIT/0.01 ML UNIT 15 UNIT SC (07:56)
[2025-07-01] MEDS: DOCUSATE SOD 100 MG CAPSULE PO (07:57)
[2025-07-01 09:00] VITALS: BP 110/68; PULSE 88
== END 2025-07-01 14:15 | disposition home or self-care (01) | DRG 540 ==
LOC: S4SX 23:54 → S4NX 06-29 00:17 → S4SX 06-29 07:01 → S4NX 06-29 07:01
PROVIDERS: Obstetrics & Gynecology; Admitting Provider Obstetrics & Gynecology; Visit Provider Specialist
PROC: 4A1HXCZ Monitoring of Products of Conception, Cardiac Rate, External Approach (ICD-10-PCS; CPT 59514; principal; 2025-06-28 22:45)
DX: O24.424 Gestational diabetes mellitus in childbirth, insulin controlled (principal); O60.14X0 Preterm labor third trimester with preterm delivery third trimester, not applicable or unspecified; O13.4 Gestational [pregnancy-induced] hypertension without significant proteinuria, complicating childbirth; O45.8X3 Other premature separation of placenta, third trimester; O76 Abnormality in fetal heart rate and rhythm complicating labor and delivery; O69.81X0 Labor and delivery complicated by cord around neck, without compression, not applicable or unspecified; O36.63X0 Maternal care for excessive fetal growth, third trimester, not applicable or unspecified; O99.214 Obesity complicating childbirth; O26.843 Uterine size-date discrepancy, third trimester; Z37.0 Single live birth; Z3A.36 36 weeks gestation of pregnancy; Z88.6 Allergy status to analgesic agent
CPT/HCPCS: 36415; 59409; 76805; 76819; 80053; 80307; 81001; 82570; 83036; 84156; 84550; 85025; 85384; 85610; 85730; 86780; 86850; 86900; 86901; 94762; 96127; A4314; A4649; J0689; J0702; J1650; J1815; J1885; J2175; J2250; J2270; J2274; J2371; J2550; J2590; J3010; J3490; J7030; A9270